=== PATIENT | female | born 1955 | race African-American/Black ===

== ENCOUNTER 2019-06-04 13:49 | Outpatient (CLI) | payer OTHER | END 2019-06-04 13:50 | disposition home or self-care (01) | LOC: MADLAB 13:49 | PROVIDERS: ATTEND Family Medicine | DX: M25.571 Pain in right ankle and joints of right foot (principal); D72.819 Decreased white blood cell count, unspecified; I10 Essential (primary) hypertension; E78.00 Pure hypercholesterolemia, unspecified; E55.9 Vitamin D deficiency, unspecified | CPT/HCPCS: 82274 ==